=== PATIENT | male | born 2000 | race Two or more races ===

== ENCOUNTER 2024-04-22 09:58 | Emergency (ER) | payer MEDICAID, SELFPAY ==
[2024-04-22 10:16] VITALS: BP 113/74; PULSE 87; RESP 17; TEMP 36.6; O2SAT 99; BMI 22.0
--- NOTE | 2024-04-22 10:18 | XR_ITS ---
Examination: CT abdomen and pelvis without contrast. Coronal 3-D reconstructions. Sagittal 2-D reconstructions. Date and time of exam:April 22, 2024 1154 hours INDICATIONS: Abdominal pain and constipation beginning 6 days ago CTDI: vol (mGy): 4.67 DLP: (mGycm): 350 Technique: Axial images of the abdomen have been obtained, 3 mm slice thickness Intravenous contrast material has not been administered. Low dose protocols were performed. One or more of the following dose reduction techniques were used; automated exposure control, adjustment of the mA and/or KV according to patient size, use of iterative reconstruction technique. Findings: No focal liver or splenic lesions No gallstones No pancreatic or adrenal mass. No renal or ureteral calculi, no hydronephrosis Aorta normal size There is inflammation around the colon especially ascending colon for instance axial image 109 Normal appendix No bowel obstruction or diverticulitis No bladder mass or bladder calculi No prostatomegaly IMPRESSION: Diffuse nonspecific colitis pattern, consider ulcerative colitis, Crohn's disease Normal appendix No diverticulitis
--- NOTE | 2024-04-22 10:18 | PD.EDRME ---
Rapid Medical Screening Exam RME Arrival date/time: 04/22/24 09:58 23-year-old male presents to the ER today for concerns of constipation. Patient reports he is taken 3 enemas at home as well as medication to help pass a stool patient reports that he is passing stool but feels like he is not completely evacuating Chief Complaint: General Adult/Misc Complain Time Seen by Provider: 04/22/24 10:13 Vital signs: Vital Signs Temperature 97.8 F 04/22/24 10:16 Pulse Rate 87 04/22/24 10:16 Respiratory Rate 17 04/22/24 10:16 Blood Pressure 113/74 04/22/24 10:16 Pulse Oximetry (%) 99 04/22/24 10:16 Oxygen Delivery Method Room Air 04/22/24 10:16
[2024-04-22 10:48] LABS: Basophils % (Auto) 1 % (0-2.5); Eosinophils # (Auto) 0.1 Thou/mm3 (0.0-0.5); Eosinophils % (Auto) 1 % (0-10); Hematocrit 41.8 % (41.0-53.0); Hemoglobin 15.2 g/dL (13.5-16.0); Immature Granulocytes % (Auto) 0 % (0-0); Immature Granulocytes Auto 0.01 Thou/mm3 (0.00-0.00); Lymphocytes # (Auto) 1.9 Thou/mm3 (1.0-4.8); Lymphocytes % (Auto) 41 % (10-50); Mean Corpuscular HGB Conc 36.4 g/dl (31.0-37.0); Mean Corpuscular Hemoglobin 31.1 pg (25.0-35.0); Mean Corpuscular Volume 86 fL (80-100); Monocytes # (Auto) 0.3 Thou/mm3 (0.0-0.8); Monocytes % (Auto) 7 % (0-12); Neutrophils # (Auto) 2.4 Thou/mm3 (1.8-7.7); Neutrophils % (Auto) 50 % (37-80); Nucleated Red Blood Cell % 0 /100 WBC (0); Platelet Count 200 Thou/mm3 (140-440); RDW Standard Deviation 37.6 fL (35.1-43.9); Red Blood Count 4.89 Miln/mm3 (4.50-5.90); White Blood Count 4.8 Thou/mm3 (3.8-10.6)
[2024-04-22 11:10] LABS: Alanine Aminotransferase 12 U/L (10-49); Albumin, Serum 5.1 gm/dL (3.5-5.0); Albumin/Globulin Ratio 1.8 (1.2-2.2); Alkaline Phosphatase 60 U/L (46-116); Anion Gap 11 (7-16); Aspartate Amino Transferase < 8 U/L (0-34); BUN/Creatinine Ratio 8 Ratio (12-20); Bilirubin,Total 2.1 mg/dL (0.3-1.2); Blood Urea Nitrogen 8 mg/dL (9-23); Calcium 10.4 mg/dL (8.3-10.6); Calcium (Corrected) 10.4 mg/dL (8.5-10.1); Carbon Dioxide 23.7 mMol/L (20.0-31.0); Chloride 105 mMol/L (98-107); Estimated Creatinine Clearance 107.8 mL/min (>60); Globulin 2.8 gm/dL (2.3-3.5); Glucose 98 mg/dL (74-106); Lipase 33 U/L (12-53); Osmolality,Calculated 277 (275-295); Sodium 140 mMol/L (136-145); Total Protein 7.9 gm/dL (5.7-8.2); eGFR > 60 See Note
--- NOTE | 2024-04-22 17:05 | PD.EDADULT ---
ED General RME/HPI General Chief complaint: General Adult/Misc Complain Stated complaint: BOWEL IMPACTION X 7; PRESCRIBED MEDS NOT WORKING Time Seen by Provider: 04/22/24 10:13 Arrival date/time: 04/22/24 09:58 23-year-old male presents to the ER today for concerns of constipation. Patient reports he is taken 3 enemas at home as well as medication to help pass a stool patient reports that he is passing stool but feels like he is not completely evacuating Limitations: no limitations RME / HPI RME / HPI narrative: 04/22/24 09:58 23-year-old male presents to the ER today for concerns of constipation. Patient reports he is taken 3 enemas at home as well as medication to help pass a stool patient reports that he is passing stool but feels like he is not completely evacuating Related Data Previous Rx's ?Medication ?Instructions ?Recorded amoxicillin 875 mg-potassium 1 tab PO Q12H #20 tabs 08/17/23 clavulanate 125 mg tablet Allergies Allergy/AdvReac Type Severity Reaction Status Date / Time No Known Allergies Allergy Verified 04/22/24 10:01 Review of Systems Review of Systems Systems Reviewed: All systems reviewed, normal except as documented Constitutional Constitutional: Reports system reviewed and no additional complaints, except as documented, Denies fever(s) and Denies headache(s) Eyes Eyes: Reports system reviewed and no additional complaints, except as documented and Denies blurry vision ENT Ears, Nose, Mouth, and Throat: Reports system reviewed and no additional complaints, except as documented, Denies headache(s), Denies nasal congestion and Denies nasal discharge Cardiovascular Cardiovascular: Reports system reviewed and no additional complaints, except as documented, Denies chest pain and Denies dyspnea Respiratory Respiratory: Reports system reviewed and no additional complaints, except as documented, Denies chest congestion, Denies cough and Denies dyspnea Gastrointestinal Gastrointestinal: Reports system reviewed and no additional complaints, except as documented and Reports abdominal pain Integumentary/Breasts Skin/Breast: Reports system reviewed and no additional complaints, except as documented and Denies rash Neurologic Neurologic: Reports system reviewed and no additional complaints, except as documented, Reports as per HPI and Denies headache(s) Past Medical History Past Medical History NEUROLOGIC: Negative Neurological Disorders CARDIAC: Negative Cardiac Disorders or Congestive Heart Failure RESPIRATORY: Negative Chronic Obstructive Pulmonary Disease (COPD) GASTROINTESTINAL: Negative Gastrointestinal Disorders GENITOURINARY: Negative Genitourinary Disorders or Renal Disease MUSCULOSKELETAL: Negative Musculoskeletal Disorders ENDOCRINE: Negative Endocrine Disorders, Diabetes Mellitus Type 1 or Diabetes Mellitus Type 2 HEMATOLOGIC: Negative Blood Disorders OTHER HISTORY: Negative Hospitalization, Autoimmune Disease, Shingles, Blood Transfusions or Cancer Family History FAMILY HISTORY: Negative Family Psychiatric Problems, Family Respiratory Disorders, Family Cardiac Disorders, Family Gastrointestinal Problems, Family Cancer, Family Surgery or Family Anesthesia Reaction Social History SMOKING STATUS: Never smoker ED Exam General Limitations: Present no limitations General appearance: Present alert and in no apparent distress Head Head exam: Present atraumatic, normocephalic and normal inspection Eye Eye exam: Present normal appearance, PERRL and EOMI; Absent conjunctival injection ENT ENT exam: Present normal exam, normal oropharynx and mucous membranes moist Neck Neck exam: Present normal inspection, full ROM and trachea midline Chest Chest inspection: Present normal inspection and symmetric chest wall rise Respiratory Respiratory exam: Present normal lung sounds bilaterally; Absent respiratory distress Cardiovascular Cardiovascular exam: Present regular rate, normal rhythm and normal heart sounds Abdominal Exam Abdominal exam: Present soft and normal bowel sounds; Absent distention, tenderness, guarding, rebound or rigidity Extremities Exam Extremities exam: Present normal inspection and full ROM Back Exam Back exam: Present normal inspection and full ROM Neurological Exam Neurological exam: Present alert, oriented X3, CN II-XII intact, normal gait and reflexes normal; Absent motor sensory deficit Psychiatric Psychiatric exam: Present normal affect and normal mood Skin Skin exam: Present warm, dry, intact and normal color Course Quality Measures none Orders Category Date Time Status Enema Administration NOW Care 04/22/24 17:[address] abdomen pelvis wo con Stat Exams 04/22/24 10:18 Completed CBC Stat Lab 04/22/24 10:25 Completed Comprehensive Metabolic Panel Stat Lab 04/22/24 10:25 Completed Lipase Stat Lab 04/22/24 10:25 Completed Vital Signs Vital signs: Vital Signs Temperature 97.8 F 04/22/24 10:16 Pulse Rate 87 04/22/24 10:16 Respiratory Rate 17 04/22/24 10:16 Blood Pressure 113/74 04/22/24 10:16 Pulse Oximetry (%) 99 04/22/24 10:16 Oxygen Delivery Method Room Air 04/22/24 10:16 O2 saturation 99% room air within normal limits MDM Patient data External records reviewed:: [facility] previous records Clinical information provided by:: patient Social determinants that could affect healthcare access:: none Patient has the following chronic illnesses:: None How is presenting disease/condition affected by chronic disease/condition?: no chronic disease Evaluation data The following diagnostics were reviewed and interpreted by me:: lab results and radiology exam(s) Lab and/or radiology exams considered but not ordered:: Labs radiology obtain Interpretation Summary: Reviewed by me Medications Medications considered but not ordered:: Given Medication administrations:: Given Consultations Consultation(s) initiated? (list below): No Diagnosis Differential Diagnosis ED Complaint MDM: Constipation, obstipation Most likely diagnosis given after review of the tests above:: Constipation Admission Indicated Admission indicated?: not indicated Explain why admission is indicated or not indicated:: No criteria Admission Request Was there a request for admission?: No Disposition Plan Disposition Plan: Discharge Discharge Attestation Discharge Attestation: The patient and all family members were given an opportunity to ask questions and understood the discharge instructions. Discharge instructions specifically effects, indications for sooner follow up or return to the emergency department, and the expected course of current diagnosis. Patient condition: Stable Medical Decision Making MDM Narrative MDM Narrative: 23-year-old male presents to the ER today for concerns of constipation. Patient reports he is taken 3 enemas at home as well as medication to help pass a stool patient reports that he is passing stool but feels like he is not completely evacuating Lab work as well as imaging obtained no acute emergent findings noted With a female financial service professional I attempted to do a disimpaction I do not feel any stool in the anal vault Soapsuds enema ordered At the time of reevaluation patient reports he feels significantly better and would like to go home Patient discharged home in no distress to follow-up with primary care doctor in the next 24 to 48 hours and for any worsening symptoms to return to the ER immediately Differential Diagnosis Differential Diagnosis: Constipation, obstipation Medical Records Medical records reviewed: Yes I reviewed the patient's medical records. Lab Data Lab results reviewed: Yes I reviewed the patient's lab results. 04/22/24 10:25 04/22/24 10:25 Labs: Lab Results 04/22/24 Range/Units 10:25 WBC 4.8 (3.8-10.6) Thou/mm3 RBC 4.89 (4.50-5.90) Miln/mm3 Hgb 15.2 (13.5-16.0) g/dL Hct 41.8 (41.0-53.0) % MCV 86 (80-100) fL MCH 31.1 (25.0-35.0) pg MCHC 36.4 (31.0-37.0) g/dl RDW Std Deviation 37.6 (35.1-43.9) fL Plt Count 200 (140-440) Thou/mm3 Neut % (Auto) 50 (37-80) % Lymph % (Auto) 41 (10-50) % [place] % (Auto) 7 (0-12) % Eos % (Auto) 1 (0-10) % Baso % (Auto) 1 (0-2.5) % Neut # (Auto) 2.4 (1.8-7.7) Thou/mm3 Lymph # (Auto) 1.9 (1.0-4.8) Thou/mm3 [place] # (Auto) 0.3 (0.0-0.8) Thou/mm3 Eos # (Auto) 0.1 (0.0-0.5) Thou/mm3 Baso # (Auto) 0.0 (0.0-0.2) Thou/mm3 Immature Gran # (Auto) 0.01 H (0.00-0.00) Thou/mm3 Absolute Nucleated RBC 0.00 (0.00-0.00) Thou/mm3 Immature Gran % 0 (0-0) % Nucleated RBC % 0 (0) /100 WBC Sodium 140 (136-145) mMol/L Potassium 4.0 (3.4-5.1) mMol/L Chloride 105 (98-107) mMol/L Carbon Dioxide 23.7 (20.0-31.0) mMol/L Anion Gap 11 (7-16) BUN 8 L (9-23) mg/dL Creatinine 1.0 (0.6-1.3) mg/dL Estim Creat Clear Calc 107.8 (>60) mL/min eGFR > 60 (60 - ) See Note BUN/Creatinine Ratio 8 L (12-20) Ratio Glucose 98 (74-106) mg/dL Calculated Osmolality 277 (275-295) Calcium 10.4 (8.3-10.6) mg/dL Corrected Calcium 10.4 H (8.5-10.1) mg/dL Total Bilirubin 2.1 H (0.3-1.2) mg/dL AST < 8 (0-34) U/L ALT 12 (10-49) U/L Alkaline Phosphatase 60 (46-116) U/L Total Protein 7.9 (5.7-8.2) gm/dL Albumin 5.1 H (3.5-5.0) gm/dL Globulin 2.8 (2.3-3.5) gm/dL Albumin/Globulin Ratio 1.8 (1.2-2.2) Lipase 33 (12-53) U/L Radiology Data Radiology results reviewed: Yes I reviewed the patient's radiology results. Discharge Plan Plan Patient Disposition: HOME (Self Care) Disposition Comment: Stable Prescriptions/Referrals Prescriptions/Med Rec: No Action amoxicillin-pot clavulanate 875-125 mg tablet 1 tab PO Q12H Qty: 20 0RF Referrals: Poncho Swan MD [Primary Care Provider] - In 1 week Problem List Clinical Impression: Acute constipation Patient/Caregiver Discharge Instructions Education Materials: Treating Constipation Additional Instructions: Please follow up with your primary care doctor in the next 24-48hrs for any worsening symptoms return here immediately If symptoms persist you may have to see GI specialist for further evaluation Print Language: Irish Stand Alone Forms: Janene Award Info., Patient Portal Info Letter PA/OC Supervising Physician ROXANE/OC Supervising Physician: Dr grove
== END 2024-04-22 18:12 | disposition home or self-care (01) ==
PROVIDERS: Nurse Practitioner Primary Care; Emergency Provider Emergency Medicine; PCP Family Medicine
DX: K59.00 Constipation, unspecified (principal)
CPT/HCPCS: 36415; 74176; 80053; 83690; 85025; 99284